=== PATIENT | male | born 1955 | race Caucasian/White ===

== ENCOUNTER 2021-09-01 14:33 | Emergency (ER) | payer SELFPAY ==
[2021-09-01 14:48] VITALS: BP 115/95; PULSE 96; O2SAT 97
[2021-09-01] MEDS ORDERED: Rocephin 1000 MG INJ IM ONE (14:51)
--- NOTE | 2021-09-01 15:39 | XRAY ---
Indication: Pain and swelling since June 2021. Comparison: None 3 nonweightbearing views left foot demonstrates mild osteopenia and mild anterior soft tissue swelling. No other bony, articular, or soft tissue abnormalities.
[2021-09-01 15:45] LABS: Basophil (Absolute #) 0.02 (0-0.4); Eosinophil % 5.7 % (0.00-5.0); Eosinophil (Absolute #) 0.39 (0-0.5); Hematocrit 39.5 % (42-50); Hemoglobin 13.1 gm/dl (12.5-18.0); Lymphocytes % 26.2 % (24.0-44.0); Mean Cell Volume 98.3 fl (78-100); Mean Corpuscular Hemoglobin 32.6 pg (26-32); Mean Corpuscular Hgb Concent. 33.2 g/dl (32-36); Mean Platelet Volume 9.4 fl (7.5-11.0); Monocyte (Absolute #) 0.77 (0.0-1.3); Monocytes % 11.2 % (0.0-12.0); Neutrophil % 56.6 % (36.0-66.0); Platelet Count 346 K/mm3 (150-450); Red Blood Count 4.02 M/mm3 (4.1-5.6); Red Cell Distribution Width 16.6 % (11.5-14.0); White Blood Count 6.9 K/mm3 (4.0-10.5)
[2021-09-01] MEDS ORDERED: Rocephin 1000 MG INJ ONE (15:50)
[2021-09-01] MEDS ORDERED: Cleocin Phosphate IV 600 MG/4 ML IM ONE (15:54)
[2021-09-01] MEDS ORDERED: Cleocin Phosphate IV 600 MG/4 ML ONE (15:58)
== END 2021-09-01 16:21 | disposition home or self-care (01) ==
LOC: ED 14:33
DX: Z53.21 Procedure and treatment not carried out due to patient leaving prior to being seen by health care provider (principal)
CPT/HCPCS: 36415; 73630; 80053; 83605; 85025; 87040; 96372; G0463; 99284; J0696